=== PATIENT | male | born 2000 | race African-American/Black ===

== ENCOUNTER 2018-09-03 22:00 | Emergency (ER) | payer OTHER, SELFPAY ==
[2018-09-03 22:53] LABS: ALT (SGPT) 38 U/L (8-55); AST (SGOT) 44 U/L (5-34); Albumin 4.3 g/dL (3.5-5.0); Alkaline Phosphatase 84 U/L (Less than 750); Anion Gap 15 mmol/L (10-20); BUN (Urea Nitrogen) 7 mg/dL (8.9-20.6); Bilirubin, Total 0.6 mg/dL (0.2-1.2); Calc. Creatinine Clearance 0 mL/min (70-130); Calcium 9.6 mg/dL (7.8-10.44); Carbon Dioxide 24 mmol/L (22-29); Chloride 104 mmol/L (98-107); Estimated GFR-MDRD Greater than 90; Glucose 97 mg/dL (70-105); Potassium 4.7 mmol/L (3.5-5.1); Protein, Total 7.3 g/dL (6.0-8.3); Sodium 138 mmol/L (136-145)
[2018-09-03 23:12] LABS: #Basophils 0.1 thou/uL (0.0-0.2); #Lymphocytes 1.5 thou/uL (1.20-3.40); #Monocytes 0.8 thou/uL (0.11-0.59); #Neutrophils 10.7 thou/uL (1.40-6.50); %Basophils 0.5 % (0.0-1.0); %Eosinophils 0.2 % (0.0-10.0); %Lymphocytes 11.3 % (28.0-48.0); Hemoglobin 15.7 g/dL (14.0-18.0); Mean Corpuscular HGB CONC 31.8 g/dL (32.0-36.0); Mean Corpuscular Hemoglobin 29.9 pg (25.0-35.0); Mean Corpuscular Volume 94.1 fL (78.0-98.0); Platelet Count 277 thou/uL (130-400); RBC Distribution Width 11.3 % (11.5-14.5); Red Blood Cell (RBC) Count 5.24 mill/uL (4.00-5.20); White Blood Cell (WBC) Count 13.1 thou/uL (4.8-10.8)
[2018-09-03] MEDS ORDERED: Dicyclomine 20 MG TAB ONE (23:39)
== END 2018-09-03 23:45 | disposition home or self-care (01) ==
LOC: ERS 22:00
DX: R10.9 Unspecified abdominal pain (principal); R11.2 Nausea with vomiting, unspecified
CPT/HCPCS: 36415; 80053; 83690; 85025; 99284

== ENCOUNTER 2019-06-10 00:29 | Emergency (ER) | payer SELFPAY ==
[2019-06-10] MEDS ORDERED: Metoclopramide HCl 10 MG/2 ML VIAL ONE (00:36)
[2019-06-10 00:58] LABS: #Basophils 0.1 thou/uL (0.0-0.2); #Eosinphils 0.1 thou/uL (0.0-0.7); #Lymphocytes 2.7 thou/uL (1.20-3.40); #Monocytes 1.8 thou/uL (0.11-0.59); #Neutrophils 11.2 thou/uL (1.40-6.50); %Basophils 0.5 % (0.0-1.0); %Eosinophils 0.5 % (0.0-10.0); %Lymphocytes 16.8 % (21.0-51.0); %Monocytes 11.3 % (0.0-10.0); %Neutrophils 70.8 % (42.0-75.0); Hemoglobin 16.5 g/dL (14.0-18.0); Mean Corpuscular HGB CONC 32.5 g/dL (32.0-36.0); Mean Corpuscular Hemoglobin 29.6 pg (27.0-31.0); Mean Corpuscular Volume 91.2 fL (78.0-98.0); Mean Platelet Volume 7.1 fL (7.4-10.4); Platelet Count 277 thou/uL (130-400); RBC Distribution Width 11.2 % (11.5-14.5); Red Blood Cell (RBC) Count 5.56 mill/uL (4.70-6.10); White Blood Cell (WBC) Count 15.8 thou/uL (4.8-10.8)
[2019-06-10 01:15] LABS: ALT (SGPT) 14 U/L (8-55); AST (SGOT) 31 U/L (5-34); Albumin 5.2 g/dL (3.5-5.0); Alkaline Phosphatase 99 U/L (40-150); Anion Gap 20 mmol/L (10-20); BUN (Urea Nitrogen) 11 mg/dL (8.9-20.6); Bilirubin, Total 1.7 mg/dL (0.2-1.2); Calc. Creatinine Clearance 0 mL/min (70-130); Carbon Dioxide 22 mmol/L (22-29); Chloride 102 mmol/L (98-107); Estimated GFR-MDRD 54; Globulin 3.2 g/dL (2.4-3.5); Glucose 116 mg/dL (70-105); Lipase 12 U/L (8-78); Potassium 3.8 mmol/L (3.5-5.1); Protein, Total 8.4 g/dL (6.0-8.3); Sodium 140 mmol/L (136-145)
[2019-06-10] MEDS ORDERED: Promethazine HCl 25 MG/ML VIAL ONE (01:44)
--- NOTE | 2019-06-10 08:02 | CT ---
PRELIMINARY REPORT/[facility]/EMERGENCY AFTER HOURS PROCEDURE: EXAM: CT Abdomen and Pelvis With Contrast EXAM DATE/TIME: 06/10/2019 1:55 AM CLINICAL HISTORY: 19 years old, male; Patient HX: 19 yom presented for sudden onset of n/v 2 hours ago. Reports abdomin al pain after vomiting in upper abdomen. Denies fever, cp, SOB, diarrhea, dysuria. Denies recent bad food, abx, sick contacts or travel TECHNIQUE: Imaging protocol: Axial computed tomography images of the abdomen and pelvis with intravenous contras t. COMPARISON: No relevant prior studies available. FINDINGS: Liver: Normal. Gallbladder and bile ducts: Normal. Pancreas: Normal. Spleen: Normal. Adrenals: Normal. Kidneys and ureters: 9 mm simple right midpole renal cyst. Stomach and bowel: Normal. Appendix: Appendix normal. Intraperitoneal space: Normal. No free air. No significant fluid collection. Vasculature: Normal. No abdominal aortic aneurysm. Lymph nodes: Normal. No enlarged lymph nodes. Bladder: Unremarkable as visualized. Reproductive: Unremarkable as visualized. Bones/joints: No acute abnormality. Soft tissues: Normal. IMPRESSION: No acute abdominal or pelvic abnormality. Thank you for allowing us to participate in the care of your patient. Dictated and Authenticated by: Antoine Carrera MD 06/10/2019 2:30 AM Central Time ([place] & [place]) FINAL REPORT ABDOMEN AND PELVIC CT SCAN WITH IV CONTRAST: EMERGENT AFTER HOURS EXAM TIME: 1:57 a.m. DATE: 06/10/2019. Evidence for right renal cyst. No renal calculus or obstruction. No evidence for acute appendici tis or other acute process. POS: [facility]
[2019-06-10] MEDS ORDERED: ISOVUE-370 76%-LOCM 1 ML ONE (10:30)
== END 2019-06-10 03:30 | disposition home or self-care (01) ==
LOC: ERS 00:29
DX: R11.2 Nausea with vomiting, unspecified (principal)
CPT/HCPCS: 74177; 80053; 82550; 83690; 85025; 96361; 96365; 96376; J2550; J2765; Q9966

== ENCOUNTER 2020-05-10 19:29 | Emergency (ER) | payer SELFPAY ==
[2020-05-10] MEDS ORDERED: Morphine 4 MG/ML VIAL ONE ×2 (19:48→20:30)
[2020-05-10] MEDS ORDERED: Ondansetron PF 4 MG/2 ML Vial ONE (19:48)
--- NOTE | 2020-05-10 20:08 | RAD ---
Left ankle 3 views HISTORY: Ankle injury. FINDINGS: The calcaneus and navicular are displaced medially from the talus. Talar dome and ankle mor tise are maintained. Triangular fragment posterior to the talus has the appearance of a large os trigonum. IMPRESSION : Prominent medial subtalar dislocation.
[2020-05-10] MEDS ORDERED: Ketorolac Tromethamine 30 MG/ML VIAL ONE (20:30)
--- NOTE | 2020-05-10 21:34 | RAD ---
Left ankle 3 views HISTORY: Ankle dislocation. COMPARISON: Earlier exam on the same date. FINDINGS: Overlying fiberglass cast now in place. Tibiotalar joint and talar dome are maintained. Subtalar alignment is now normal. Pes planus is evide nt on the lateral view. Using elongated, somewhat sharp 1.3 cm calcific density fragment projects inferior to the calcaneus o n the lateral view. There is a linear irregular 0.9 cm calcific density projecting immediately posterior to the talus on the lateral view. IMPRESSION : Interval reduction of the subtalar dislocation. Small densities projecting over the inferior and posterior aspect of the ankle/hindfoot on the latera l view only. Ossific avulsion fragments versus overlying artifact. Please consider short-term radiographic follow-up without overlying material.
== END 2020-05-10 22:00 | disposition home or self-care (01) ==
LOC: ERS 19:29
DX: S93.05XA Dislocation of left ankle joint, initial encounter (principal); X58.XXXA Exposure to other specified factors, initial encounter
CPT/HCPCS: 27840; 96374; 96375; 99152; J1885; J2270; J2405

== ENCOUNTER 2021-10-08 12:21 | Emergency (ER) | payer SELFPAY | END 2021-10-08 13:15 | disposition home or self-care (01) | LOC: ERS 12:21 | DX: R05.9 Cough, unspecified (principal) | CPT/HCPCS: 99283 ==

== ENCOUNTER 2023-04-04 17:50 | Emergency (ER) | payer OTHER ==
[2023-04-04 19:46] LABS: #Basophils 0.1 thou/uL (0.0-0.2); #Eosinphils 0.3 thou/uL (0.0-0.7); #Monocytes 1.1 thou/uL (0.11-0.59); %Basophils 0.7 % (0.0-1.0); %Lymphocytes 32.3 % (21.0-51.0); %Monocytes 16.8 % (0.0-10.0); %Neutrophils 45.1 % (42.0-75.0); Hemoglobin 15.6 g/dL (14.0-18.0); Mean Corpuscular HGB CONC 33.2 g/dL (32.0-36.0); Mean Corpuscular Hemoglobin 29.5 pg (27.0-31.0); Mean Corpuscular Volume 88.8 fl (78.0-98.0); Mean Platelet Volume 8.6 fL (7.4-10.4); Platelet Count 365 10x3/uL (130-400); Red Blood Cell (RBC) Count 5.29 mill/uL (4.70-6.10); White Blood Cell (WBC) Count 6.7 10x3/uL (4.8-10.8)
[2023-04-04 20:11] LABS: ALT (SGPT) 15 U/L (8-55); AST (SGOT) 25 U/L (5-34); Albumin 4.4 g/dL (3.5-5.0); Alkaline Phosphatase 71 U/L (40-110); Anion Gap 12 mmol/L (10-20); BUN (Urea Nitrogen) 11 mg/dL (8.9-20.6); Bilirubin, Total 0.4 mg/dL (0.2-1.2); Calc. Creatinine Clearance 0 mL/min (70-130); Calcium 10.1 mg/dL (7.8-10.44); Carbon Dioxide 29 mmol/L (22-29); Chloride 103 mmol/L (98-107); Estimated GFR 82; Globulin 3.1 g/dL (2.4-3.5); Glucose 85 mg/dL (70-105); Lipase 17 U/L (8-78); Potassium 4.1 mmol/L (3.5-5.1); Protein, Total 7.5 g/dL (6.0-8.3); Sodium 140 mmol/L (136-145)
== END 2023-04-04 23:28 | disposition left against medical advice (07) ==
LOC: ERS 17:50
DX: Z53.21 Procedure and treatment not carried out due to patient leaving prior to being seen by health care provider (principal)
CPT/HCPCS: 36415; 80053; 83690; 85025

== ENCOUNTER 2024-02-26 11:39 | Emergency (ER) | payer OTHER, SELFPAY | END 2024-02-26 14:54 | disposition home or self-care (01) | LOC: ERS 11:39 | DX: R11.2 Nausea with vomiting, unspecified (principal); Z55.0 Illiteracy and low-level literacy | CPT/HCPCS: 36415; 80053; 83690; 85025; 96361; 96374; J2405 ==